=== PATIENT | female | born 1960 | race Caucasian/White ===

== ENCOUNTER 2016-09-15 19:22 | Emergency (ER) | payer BC, OTHER ==
[~2016-09-15] VITALS: Ht 167.6 cm; Wt 144.7 kg
[~2016-09-15 19:22] MED LIST: ALBU0.08 NEB; ALBUAER INH; FURO40TA3 PO; LANS15CA15 PO; LSN20 PO; URSO300C8 PO
[2016-09-15 19:31] VITALS: BP 183/82; PULSE 95; TEMP 36.7; O2SAT 97; Ht 167.6 cm; Wt 144.7 kg
[2016-09-15] MEDS ORDERED: OXYCODONE/ACETAMINOPHEN 5-325 TAB PO ONE (19:45)
--- NOTE | 2016-09-15 20:07 | DIAGNOSTIC IMAGING REPORT ---
RIGHT FOOT MIN 3 VIEWS ROUTINE CLINICAL HISTORY: Right foot pain status post trauma COMPARISON: None. DISCUSSION: No acute fractures or dislocations are visualized. There is a tiny Achilles insertional spur. There is a small ossicle adjacent the dorsal aspect of the navicular which is felt to be old. IMPRESSION: No acute fractures or dislocations. Electronically signed by: Jt Mendes M.D. 09/15/2016 8:05 PM Dictated Date/Time: 09/15/2016 8:04 PM
[2016-09-15] MEDS ORDERED: OXYC-57 PO (20:35)
--- NOTE | 2016-09-15 20:36 | EMERGENCY ROOM VISIT NOTE ---
ED Visit Note First contact with patient: 19:33 Chief Complaint: RIGHT Foot Pain History of Present Illness: Patient is a 56-year-old female who presents to the emergency Department by private vehicle for evaluation of pain to her RIGHT foot. She reports a prior history of sesamoid bone fracture with subsequent surgical intervention performed by Dr. Rendon. She reports that she has had no real symptoms since the procedure was performed. Today, she reports walking on an inclined hill while at an Easter egg [place] with her daughter. She reports that she had no pain until after ambulate awkwardly on the hill. She shortly develop stabbing pain to the top and bottom of the RIGHT foot overlying the great toe. She denies any numbness or tingling into the distal extremity. She reports no new trauma to the area. The patient tried one of her 's Percocet with moderate relief of symptoms. She reports increasing pain with ambulation and range of motion of the foot. The patient rates her current discomfort as a 6/10. She denies any associated fevers, chills, ankle pain, calf pain, or knee pain. Medications: Reviewed and discussed with the patient. Allergies: Aspirin, chlorhexidine, garlic, hydrocodone, morphine, penicillins PMH: As above. SHx: Patient is a 56-year-old female who lives locally. ROS: All pertinent positive and negative review of systems are appropriately documented in the History of Present Illness. Physical Exam: VITAL SIGNS - Vital signs and nursing notes were reviewed. GENERAL - 56-year-old female appearing her stated age and in noticeable discomfort throughout the exam. MUSCULOSKELETAL - RIGHT foot without erythema, edema, and ecchymosis. Well- healed surgical incision site noted to the distal portion of the LEFT foot between the first and second MTP joints. Moderate tenderness to palpation appreciated over the incision site. No tenderness to palpation in the plantar arch. No tenderness extending into the ankle or toes. Pt with full AROM at affected joint. NEUROLOGIC/VASCULAR - Neurovascularly intact distally with +3/5 dorsalis pedis pulses palpated bilaterally. Normal sensation to light and sharp touch appreciated distally. IMAGING: RIGHT FOOT MIN 3 VIEWS ROUTINE CLINICAL HISTORY: Right foot pain status post trauma COMPARISON: None. DISCUSSION: No acute fractures or dislocations are visualized. There is a tiny Achilles insertional spur. There is a small ossicle adjacent the dorsal aspect of the navicular which is felt to be old. IMPRESSION: No acute fractures or dislocations. ED Course: Patient was seen and evaluated by myself. Patient was provided one Percocet for their complaint of pain. X-rays were obtained of the affected foot. Imaging results as above. Images were discussed and reviewed with the patient who acknowledges understanding. Patient was provided a Postop shoe for their comfort. She has crutches at home. Patient was provided for pain control at home. Patient educated on worrisome symptoms for return visit to the emergency department. She will follow-up with her orthopedist with whom she is established. In the evaluation and treatment of this patient, the following differential diagnoses were considered: Lisfranc Fracture, Talus Fracture, Tarsal Fracture, Foot Sprain. Impression: RIGHT Foot Sprain/Strain Discharge Instructions: You have been treated in the Emergency Department for your RIGHT Foot Sprain/ Strain. You have been prescribed Percocet to be used for pain control. This is a narcotic medication. You cannot drive or consume alcohol while on this medicine. This medicine should only be used for pain that cannot be controlled with plis-sqs-rykszwa pain medicines. For pain control, you can use the following wbfr-qpc-tfpsadr medicines (if >12 yo): - Regular strength (325mg/tab) Tylenol (acetaminophen) 2 tabs every 4-6 hours as needed. Do not exceed 12 tablets in a 24 hour period. Avoid taking more than 4 grams (4000 mg) of Tylenol per day. This includes any other sources of acetaminophen you may take on a regular basis. - Regular strength (200 mg/tab) Advil (ibuprofen) 1-2 tabs every 4-6 hours as needed. Do not exceed a dose of 3200 mg per day. If this is a recent injury (<24 hrs), ice can be applied to the area of pain for the first 3 days to help decrease pain and inflammation. Use the post-op shoe for comfort and crutches. Follow-up with Dr. Rendon this week. Return to the Emergency Department if your current symptoms worsen despite treatment course outlined above, or if you develop any of the following symptoms : intractable pain despite aforementioned treatment course or new onset of numbness or tingling of the foot. Problem List Medical Problems: (1) Chronic low back pain Status: Chronic (2) History of - Barone's palsy Status: Resolved (3) Hypoglycemia Status: Chronic (4) Migraine Status: Chronic (5) PERSONAL HX OF TIA,& CEREBRAL INFARCTION W/OUT RES DEFICITS Status: Resolved Current/Historical Medications Scheduled Albuterol Soln (Proventil 0.083% 2.5MG/3ML), 2.5 MG NEB Q4 Lansoprazole (Prevacid), 15 MG PO DAILY Lisinopril (Lisinopril), 20 MG PO DAILY Ursodiol (Ursodiol), 300 MG PO BID Scheduled PRN Albuterol (Proventil Hfa), 2 PUFFS INH Q4 PRN for SOB/Wheezing Furosemide (Lasix), 40 MG PO DAILY PRN for EDEMA Oxycodone/Acetaminophen 5MG/325MG (Percocet 5MG/325MG), 1-2 TABS PO Q6 PRN for Pain Allergies Coded Allergies: Chlorhexidine (Verified Allergy, Intermediate, severe itching, 12/02/14) Garlic (Verified Allergy, Intermediate, SKIN BLISTERING/PEELING, 12/02/14) Hydrocodone (Verified Allergy, Intermediate, HIVES, 12/02/14) Aspirin (Verified Allergy, Unknown, `, 12/02/14) Penicillins (Verified Allergy, Unknown, `, 12/02/14) Morphine (Verified Adverse Reaction, Mild, N/V, 12/02/14) Vital Signs Date Time Temp Pulse Resp B/P Pulse Ox O2 Delivery O2 Flow Rate FiO2 09/15/16 19:31 36.7 95 18 183/82 97 Room Air Medications Administered Medications (Trade) Dose Ordered Sig/Rishabh Route Start Time Stop Time Status Last Admin Dose Admin Oxycodone/ Acetaminophen (Percocet 5-325mg Tab) 1 tab NOW ONCE PO 09/15/16 19:45 09/15/16 19:46 DC 09/15/16 19:55 1 TAB Oxycodone/ Acetaminophen (Percocet 5/ 325MG Home Pack) 1 homepack UD ONCE PO 09/15/16 20:45 09/15/16 20:46 DC 09/15/16 20:37 1 HOMEPACK Departure Information Impression Primary Impression: Right foot strain Dispostion Home / Self-Care Condition GOOD Prescriptions Oxycodone/Acetaminophen 5MG/325MG (PERCOCET 5MG/325MG) Tab 1-2 TABS PO Q6 Y for Pain, #16 TAB For Initial Treatment Prov: Silvio Cooper PA-C 09/15/16 Referrals Abhishek Hdz M.D. (PCP) Luciano Rendon D.O. Patient Instructions My [facility] Additional Instructions You have been treated in the Emergency Department for your RIGHT Foot Sprain/ Strain. You have been prescribed Percocet to be used for pain control. This is a narcotic medication. You cannot drive or consume alcohol while on this medicine. This medicine should only be used for pain that cannot be controlled with dibn-qqa-ommvaai pain medicines. For pain control, you can use the following dxxl-zva-zcepist medicines (if >12 yo): - Regular strength (325mg/tab) Tylenol (acetaminophen) 2 tabs every 4-6 hours as needed. Do not exceed 12 tablets in a 24 hour period. Avoid taking more than 4 grams (4000 mg) of Tylenol per day. This includes any other sources of acetaminophen you may take on a regular basis. - Regular strength (200 mg/tab) Advil (ibuprofen) 1-2 tabs every 4-6 hours as needed. Do not exceed a dose of 3200 mg per day. If this is a recent injury (<24 hrs), ice can be applied to the area of pain for the first 3 days to help decrease pain and inflammation. Use the post-op shoe for comfort and crutches. Follow-up with Dr. Rendon this week. Return to the Emergency Department if your current symptoms worsen despite treatment course outlined above, or if you develop any of the following symptoms : intractable pain despite aforementioned treatment course or new onset of numbness or tingling of the foot. Problem Qualifiers Primary Impression: Right foot strain Encounter type: initial encounter Qualified Codes: S96.911A - Strain of unspecified muscle and tendon at ankle and foot level, right foot, initial encounter
[2016-09-15] MEDS ORDERED: PERCOCET HOME PACK PO ONE (20:45)
== END 2016-09-15 20:49 | disposition home or self-care (01) ==
LOC: C.EDB 19:23 → C.EDD 20:49
DX: S96.911A Strain of unspecified muscle and tendon at ankle and foot level, right foot, initial encounter (principal); X58.XXXA Exposure to other specified factors, initial encounter; Y93.01 Activity, walking, marching and hiking; G89.29 Other chronic pain; Z86.73 Personal history of transient ischemic attack (TIA), and cerebral infarction without residual deficits

== ENCOUNTER 2017-09-02 19:11 | Emergency (ER) | payer OTHER ==
[~2017-09-02] VITALS: Ht 167.6 cm; Wt 142.9 kg
[2017-09-02 19:14] VITALS: TEMP 36.8; Ht 167.6 cm; Wt 142.9 kg
[2017-09-02 19:44] VITALS: BP 170/82; PULSE 91; O2SAT 95
--- NOTE | 2017-09-02 22:57 | EMERGENCY ROOM VISIT NOTE ---
ED Visit Note First contact with patient: 19:29 CHIEF COMPLAINT: knee pain HISTORY OF PRESENT ILLNESS: This 57-year-old female patient presents to the emergency department after sustaining an injury to the right knee several days ago. The patient states that she was crawling on the floor with her special needs daughter, when she felt increasing pain of her right knee. The patient has a history of chronic pain in this knee, and has required surgery in the past. The patient did follow with her family doctor regarding this and was started on steroids. She is able to ambulate, however worsens her pain. The patient does follow with [facility], but has not contacted them regarding this. REVIEW OF SYSTEMS: A 6 system review of systems was completed with positives and pertinent negatives listed in the HPI. ALLERGIES: See EMR MEDICATIONS: See EMR PMH: Chronic right knee pain SOCIAL HISTORY: Lives locally with family PHYSICAL EXAM: Vital Signs: Reviewed Nurse's notes, vital signs stable. GENERAL : White female, no acute distress, but appears in pain, well-developed, well- nourished. MENTAL STATUS: Alert, oriented to person place and time, and cooperative. MUSCULOSKELETAL: The right knee is moderately swollen. There is no ecchymosis. There is mild joint effusion present. The patient is tender anteriorly. There is no joint line tenderness. The patella does not subluxate. Range of motion is not limited. Strength of the quads and hamstrings is 5/5. Hedy's is Negative. Dana's and Anterior Drawer tests are negative. There is no laxity with varus and valgus stressing. The foot and toes are warm and well-perfused. Dorsalis pedis pulse 2+. Sensation to pain and light touch is intact. Capillary refill less than 2 seconds. EMERGENCY DEPARTMENT COURSE: Physical exam and history were performed. Nursing notes and EMR were reviewed. Patient appears to have right knee pain that is acutely exacerbated. The patient has had symptoms like this in the past. I discussed options of care with the patient, and offered her x-rays, pain medication, crutches, and a splint. The patient indicated that she did not desire any of these interventions. Her primary reason for presentation is to have an aspiration performed of the knee. I explained to the patient that this was not emergently indicated. The patient was dissatisfied with this, however I did explain that her orthopedic group, [facility], does maintain walk-in clinic hours until 8 PM. It is certainly possible they may be willing to perform this procedure for her, as we are unable to perform this in the emergency department. The patient voiced that this would be reasonable and requested discharge so that she may go to their clinic. Paperwork was completed and patient was discharged to follow with orthopedics. Problem List Medical Problems: (1) Chronic low back pain Status: Chronic (2) History of - Barone's palsy Status: Resolved (3) Hypoglycemia Status: Chronic (4) Migraine Status: Chronic (5) PERSONAL HX OF TIA,& CEREBRAL INFARCTION W/OUT RES DEFICITS Status: Resolved Current/Historical Medications Scheduled Albuterol Soln (Proventil 0.083% 2.5MG/3ML), 2.5 MG NEB Q4 Lansoprazole (Prevacid), 15 MG PO DAILY Lisinopril (Lisinopril), 20 MG PO DAILY Ursodiol (Ursodiol), 300 MG PO BID Scheduled PRN Albuterol (Proventil Hfa), 2 PUFFS INH Q4 PRN for SOB/Wheezing Furosemide (Lasix), 40 MG PO DAILY PRN for EDEMA Allergies Coded Allergies: Chlorhexidine (Verified Allergy, Intermediate, severe itching, 12/02/14) Garlic (Verified Allergy, Intermediate, SKIN BLISTERING/PEELING, 12/02/14) Hydrocodone (Verified Allergy, Intermediate, HIVES, 12/02/14) Aspirin (Verified Allergy, Unknown, `, 12/02/14) Penicillins (Verified Allergy, Unknown, `, 12/02/14) Morphine (Verified Adverse Reaction, Mild, N/V, 12/02/14) Vital Signs Date Time Temp Pulse Resp B/P (MAP) Pulse Ox O2 Delivery O2 Flow Rate FiO2 09/02/17 19:44 91 18 170/82 95 09/02/17 19:14 36.8 99 18 185/79 96 Room Air Departure Information Impression Primary Impression: Knee pain Dispostion Home / Self-Care Condition GOOD Referrals No Doctor, Assigned Luciano Rendon D.O. Forms HOME CARE DOCUMENTATION FORM, IMPORTANT VISIT INFORMATION Patient Instructions My [facility] Additional Instructions You were seen and evaluated today on an emergency basis only. This is not a substitute for, or an effort to provide, complete comprehensive medical care. It is not possible to recognize and treat all injuries or illnesses in a single emergency department visit. For this reason it is recommended that you followup with Orthopedics, Dr. Rendon's office, for ongoing care and evaluation. You are welcome to return to the emergency department anytime with new, worsening, or concerning symptoms.
== END 2017-09-02 19:46 | disposition home or self-care (01) ==
LOC: C.EDB 19:12 → C.EDD 19:46
DX: M25.561 Pain in right knee (principal); G89.29 Other chronic pain; Z86.73 Personal history of transient ischemic attack (TIA), and cerebral infarction without residual deficits; Z79.899 Other long term (current) drug therapy; Z88.6 Allergy status to analgesic agent; Z88.0 Allergy status to penicillin; Z88.5 Allergy status to narcotic agent; Z91.018 Allergy to other foods

== ENCOUNTER 2025-03-13 11:45 | Inpatient (IN) ==
--- NOTE | 2025-03-13 12:09 | Emergency Department Note ---
Impression & Plan Heart palpitations, Chest pain, Hypertensive urgency ED Provider Note Provider: Derrell Epps MD CHIEF COMPLAINT: Palpitations, chest and neck pressure HISTORY OF PRESENT ILLNESS: Patient is a 64-year-old female history of diabetes, microcytic anemia, and hypertension presenting here today via ambulance from her home. States she was at home crocheting and had development of palpitations in the chest maybe a bit of lightheadedness and some later pressure in the chest to the neck. This has improved. No syncope. No falls. No abdominal pain or nausea. No history of similar but strong family history of A-fib. She felt quite shaky and states she did not feel comfortable driving so she called the ambulance and brought here for further care. Notes that her blood pressure is high right now and at times has been high and low. Blood sugars in the 100s to 200s by her report and has a continuous glucose monitor. Denies recent cough or cold symptoms. Denies leg swelling at this time. No recent travel outside the immediate area reported. No sick contacts reported. Slight headache and she is a history of headaches in the past. PAST MEDICAL HISTORY: As noted above MEDICATIONS: Reviewed home medications SOCIAL HISTORY: , former smoker PHYSICAL EXAM: GENERAL: alert and oriented in no acute distress on stretcher Head: normocephalic and atraumatic EYES: No injection, discharge or icterus. NECK: Trachea midline. Good range of motion ENT: Mucous membranes pink and moist. LUNGS: Airway patent. No retractions. Breath sounds clear with good air entry bilaterally. HEART: Regular tachycardic rate and rhythm. No chest wall tenderness ABDOMEN: Soft and non-tender, without guarding or rebound. SKIN: Acyanotic, warm, dry, without rashes EXTREMITIES: Without swelling, tenderness or deformity NEUROLOGICAL: No focal deficits. No aphasia. No facial droop or slurred speech. Normal strength and tone in the extremities. Sensation to gross touch normal. Ambulatory. EK bpm sinus tachycardia with PVC. No ST segment elevation or depression with QTc 478. Diffuse T wave inversions. CONTINUOUS CARDIAC MONITORING: was ordered and showed a heart rate of 70s to 120s bpm in sinus tachycardia/normal sinus rhythm Patient's laboratory studies and imaging reviewed. Differential includes Premature contractions, electrolyte abnormality, cardiac dysrhythmia, thyroid dysfunction, pulmonary embolism, infection, gastrointestinal, as well as other pathologies. IMPRESSION/MEDICAL DECISION MAKING: Patient with some palpitations and maybe some chest and neck tightness earlier. He is hypertensive here upon arrival. Has had some improvement of her symptoms by report. EKG here without STEMI or significant arrhythmia other than tachycardia. Blood work here without leukocytosis and no real infectious symptoms reported. Not anemic here. No significant lecture light abnormality or evidence of renal dysfunction. Is a diabetic and glucose is elevated 203 but not HHS/DKA. No evidence of acute hepatitis or pancreatitis. Troponin does return normal at 4 here on initial draw. Negative urinalysis (although she reports urinary frequency) and normal TSH. Patient does have some persistent tachycardia and hypertension. Given this discussed with her completing a CTA of the chest to exclude PE but I doubt this represents dissection. Certainly has cardiac risk factors. Given a bit of IV fluid here. Patient ambulatory here but still persistently tachycardic and little tightness of the neck with this. Persistently hypertensive. CT angiogram of the chest without evidence of PE with some atelectasis and mild coronary calcifications. Patient's heart rate is right around to 100 currently. Not hypoxic. Patient still with hypertension. Still with palpitation sensation and again not in significant arrhythmia. Discussed with her options of staying for further evaluation and cardiac evaluation in particular. Discussed possible delta troponin along these lines as well. Shared decision making given that she still had tachycardia and hypertensive and still has some chest discomfort we will give labetalol for better blood rate and heart rate control as she still feels significant palpitations and will bring in for further cardiac evaluation and blood pressure control. DIAGNOSIS: Palpitations, hypertension, atypical chest pain, tachycardia DISPOSITION: Hospitalist will evaluate Patient was agreeable with this plan. Past Med/Surg History Problem List (Updated 03/13/25 @ 14:34 by Derrell Epps M.D.) Hypertensive urgency (Acute) Chest pain (Acute) Heart palpitations (Acute) Anemia (Chronic) Microcytic anemia (Chronic) Diabetes (Chronic) Asthma (Chronic) Migraine headache (Chronic) GERD (gastroesophageal reflux disease) (Chronic) Diaphragmatic hernia (Chronic) Von Willebrand disease (Chronic) HTN (hypertension) (Chronic) [place] treated with BiPAP (Chronic) Autoimmune hepatitis (Chronic 03/09/11) Medical History (Updated 03/13/25 @ 14:34 by Derrell Epps M.D.) Asthma Autoimmune hepatitis Family History Other Diabetes Heart disease Hypertension Social History Smoking Status: Former smoker Do You Dip or Chew Tobacco: No; Hx Alcohol Use: No Hx Substance Use: Yes Preferred Language: Kinyarwanda Communication Ability: Effective Cadd Drafter Required: No Beliefs That Will Affect Care: None Current Living Situation: Spouse and Family Feels Safe at Home: Yes Assistive Devices: BiPap and Glasses Allergies Allergies Allergy/AdvReac Type Severity Reaction Status Date / Time chlorhexidine Allergy Intermediate severe Verified 03/01/19 17:04 itching garlic Allergy Intermediate SKIN Verified 03/13/25 14:44 BLISTERING/PEELING hydrocodone Allergy Intermediate HIVES Verified 03/01/19 17:04 aspirin Allergy Unknown ` Verified 03/01/19 17:04 hydromorphone [From Dilaudid] Allergy Unknown Unknown Verified 03/01/19 17:04 Penicillins Allergy Unknown ` Verified 03/01/19 17:04 mold Allergy Unknown Verified 03/01/19 17:04 morphine AdvReac Mild N/V Verified 03/01/19 17:04 ferumoxytol [From Feraheme] AdvReac Joint Pain Verified 03/13/25 14:45 Home Meds Home Medications Medication Instructions Recorded Confirmed albuterol sulfate 2.5 mg/3 mL 2.5 mg inhalation Q4H PRN SOB 03/13/25 03/13/25 (0.083 %) solution for nebulization albuterol sulfate 90 mcg/actuation 1 inh inhalation QID PRN SOB 03/13/25 03/13/25 aerosol inhaler amlodipine 2.5 mg tablet 2.5 mg PO DAILY 03/13/25 03/13/25 celecoxib 100 mg capsule 100 mg PO BID PRN Unknown 03/13/25 03/13/25 cholecalciferol (vitamin D3) 50 50 mcg PO DAILY 03/13/25 03/13/25 mcg (2,000 unit) tablet (Vitamin D3) furosemide 40 mg tablet 40 mg PO DAILY PRN RETENTION 03/13/25 03/13/25 gemfibrozil 600 mg tablet 600 mg PO BID 03/13/25 03/13/25 glimepiride 1 mg tablet 1 mg PO DAILY 03/13/25 03/13/25 lansoprazole 30 mg capsule,delayed 30 mg PO DAILY 03/13/25 03/13/25 release ursodiol 300 mg capsule 300 mg PO BID 03/13/25 03/13/25 Results & Data (ED) Vital Signs Vital Signs - 24 hr 03/13/25 11:49 03/13/25 11:58 03/13/25 11:59 Pulse Rate 120 H 111 H Pulse Rate from SpO2 Sensor Respiratory Rate 22 19 Blood Pressure 183/142 H 183/137 H 185/137 H Blood Pressure Mean 157 152 155 Pulse Oximetry 95 94 Oxygen Delivery Method Room Air Room Air Sepsis Recent Fever Within 48 Hours No Sepsis New/Unexplained Change in Mental Status No Sepsis Action Taken by Nursing Physician Notified 03/13/25 12:01 03/13/25 12:12 03/13/25 13:28 Pulse Rate 95 H 85 120 H Pulse Rate from SpO2 Sensor Respiratory Rate 20 20 Blood Pressure 172/148 H Blood Pressure Mean 151 Pulse Oximetry 95 95 Oxygen Delivery Method Room Air Room Air Sepsis Recent Fever Within 48 Hours Sepsis New/Unexplained Change in Mental Status Sepsis Action Taken by Nursing 03/13/25 13:39 03/13/25 14:00 03/13/25 14:38 Pulse Rate 98 H 118 H 112 H Pulse Rate from SpO2 Sensor Respiratory Rate 20 22 Blood Pressure 170/93 H 187/115 H 146/108 H Blood Pressure Mean 110 146 Pulse Oximetry 95 Oxygen Delivery Method Room Air Sepsis Recent Fever Within 48 Hours Sepsis New/Unexplained Change in Mental Status Sepsis Action Taken by Nursing 03/13/25 14:39 03/13/25 14:49 03/13/25 14:49 Pulse Rate 94 H Pulse Rate from SpO2 Sensor Respiratory Rate 18 Blood Pressure 146/108 H 158/86 H 158/86 H Blood Pressure Mean 111 115 115 Pulse Oximetry Oxygen Delivery Method Sepsis Recent Fever Within 48 Hours Sepsis New/Unexplained Change in Mental Status Sepsis Action Taken by Nursing 03/13/25 14:51 03/13/25 14:53 Pulse Rate 89 93 H Pulse Rate from SpO2 Sensor 93 H Respiratory Rate 19 Blood Pressure 158/86 H Blood Pressure Mean Pulse Oximetry 94 Oxygen Delivery Method Sepsis Recent Fever Within 48 Hours Sepsis New/Unexplained Change in Mental Status Sepsis Action Taken by Nursing Laboratory Data 03/13/25 11:52 03/13/25 11:52 Lab Results 03/13/25 Range/Units 11:52 WBC 8.88 (4.8-10.8) K/ul RBC 4.97 (4.20-5.40) M/uL Hgb 14.7 (12.0-16.0) g/dl Hct 44.1 (37.0-47.0) % MCV 88.7 (80.0-100.0) fL MCH 29.6 (25.0-34.0) pg MCHC 33.3 (32.0-36.0) g/dL RDW Std Deviation 44.1 (36.4-46.3) fL RDW Coeff of Michelle 13.7 (11.5-14.5) % Plt Count 250 (130-400) K/uL MPV 9.9 (9.4-12.4) fL Immature Gran % (Auto) 0.8 % Neut % (Auto) 69.1 % Lymph % (Auto) 18.7 % [place] % (Auto) 8.1 % Eos % (Auto) 2.6 % Baso % (Auto) 0.7 % Neut # (Auto) 6.14 (1.40-6.50) K/uL Lymph # (Auto) 1.66 (1.20-3.40) K/uL [place] # (Auto) 0.72 H (0.11-0.59) K/uL Eos # (Auto) 0.23 (0.00-0.50) K/uL Baso # (Auto) 0.06 (0.00-0.20) K/uL Immature Gran # (Auto) 0.07 (0.01-0.20) K/uL PT 10.5 (9.0-12.0) Seconds INR 1.0 (0.9-1.1) APTT 35 H (21-31) Seconds PTT Ratio 1.3 Sodium 138 (136-145) mmol/L Potassium 4.2 (3.5-5.1) mmol/L Chloride 100 (98-107) mmol/L Carbon Dioxide 29 (21-32) mmol/L Anion Gap 9 (3-11) BUN 18 (6-23) mg/dl Creatinine 0.72 (0.6-1.2) mg/dl Est Cr Clr Drug Dosing 113.8 ml/min eGFR 92.73 BUN/Creatinine Ratio 25.0 H (10-20) Glucose 203 H (70-99(Fasting)) mg/dl Calcium 9.7 (8.6-10.3) mg/dl Total Bilirubin 0.3 (0.2-1.0) mg/dl AST 12 L (13-39) U/L ALT 17 (7-52) U/L Alkaline Phosphatase 94 (34-104) U/L Troponin I High Sens 4.0 (0-14) pg/ml Total Protein 8.1 (6.0-8.3) gm/dl Albumin 3.9 (3.4-5.0) gm/dl Globulin 4.2 H (2.5-4.0) gm/dl Albumin/Globulin Ratio 0.9 (0.9-2) Lipase 26 (11-82) U/L TSH 1.164 (0.300-4.500) uIu/ml Urine Color Yellow Urine Appearance Clear (Clear) Urine pH 6.5 (4.5-7.5) Ur Specific [place] 1.013 (1.000-1.030) Urine Protein Negative (Negative) Urine Glucose (UA) Negative (Negative) Urine Ketones Negative (Negative) Urine Blood Negative (Negative) Urine Nitrite Negative (Negative) Urine Bilirubin Negative (Negative) Urine Urobilinogen Negative (Negative) Ur Leukocyte Esterase Negative (Negative) Urine Comment Administered Medications Discontinued Medications Sodium Chloride (Nss) 500 mls @ 999 mls/hr IV .Q31M ONE Stop: 03/13/25 13:32 Last Admin: 03/13/25 13:11 Dose: 999 mls/hr Documented By: AKASH Ioversol (Optiray 320 125ml) 65 ml IV ONCE ONE Stop: 03/13/25 13:35 Last Admin: 03/13/25 13:36 Dose: 65 ml Documented By: GAEL Labetalol HCl (Labetalol Hcl Iv 5 Mg/Ml 20ml) 10 mg IV NOW STA Stop: 03/13/25 14:33 Last Admin: 03/13/25 14:38 Dose: 10 mg Documented By: AKASH Imaging Data Radiologist's Impression: Chest X-Ray 03/13/25 12:00 Clinical History: Chest pain Technique: A frontal view of the chest was obtained Findings: There are no confluent pulmonary infiltrates. The heart size is within normal limits. No pleural effusion or pneumothorax is seen. There is no definite pulmonary nodule. No fracture is noted. No foreign body is seen Impression: No active disease Electronically signed by Kota Ridley 03-13-2025 12:32 PM Chest CTA 03/13/25 12:55 Exam: CT angiogram chest with the pulmonary embolus protocol. Reason for exam: Chest pain with tachycardia. Previous studies: Chest radiograph 03/13/2025. FINDINGS: There is good opacification of the pulmonary artery. At this time no persistent filling defect to indicate pulmonary embolus is identified on either side. Aorta shows no visible aneurysm or dissection at this time. Mild coronary artery calcifications are present. Lungs again show minimal scattered linear areas of atelectasis. Otherwise no active pulmonary nodule, infiltrate or mass lesion is seen at this time. No pleural effusion or pneumothorax is noted. IMPRESSION: 1. Negative for pulmonary embolus. 2. A few scattered areas of linear atelectasis. Otherwise clear lungs. 3. Mild coronary artery calcification. 4. Otherwise negative for active cardiopulmonary disease. Electronically signed by Robby Murdock 03-13-2025 2:17 PM Discharge Plan Visit Data Chief Complaint: Cardiac Assessment ED Provider: Derrell Epps Discharge Problem: Heart palpitations, Chest pain, Hypertensive urgency Patient Disposition: Admitted As Inpatient Condition: Fair Discharge Instructions Interventions: ED Discharge Assessment Last Done: 03/13/25 16:20
[2025-03-13 12:17] LABS: Appearance Urine Clear (Clear); Glucose Urine UA Negative (Negative); Hematocrit (blood only) 44.1 % (37.0-47.0); Hemoglobin 14.7 g/dl (12.0-16.0); Immature Granulocytes # (auto) 0.07 K/uL (0.01-0.20); Immature Granulocytes % (auto) 0.8 %; Mean Corpuscular Hemoglobin 29.6 pg (25.0-34.0); Mean Corpuscular Volume 88.7 fL (80.0-100.0); Platelet Count 250 K/uL (130-400); RDW Standard Deviation 44.1 fL (36.4-46.3); Red Blood Count 4.97 M/uL (4.20-5.40); White Blood Count 8.88 K/ul (4.8-10.8)
[2025-03-13 12:25] LABS: Alanine Aminotransferase 17.0 U/L (7-52); Albumin Globulin Ratio 0.9 (0.9-2); Albumin Level 3.9 gm/dl (3.4-5.0); Alkaline Phosphatase 94.0 U/L (34-104); Anion Gap 9.0 (3-11); Bilirubin,Total 0.3 mg/dl (0.2-1.0); Blood Urea Nitrogen 18.0 mg/dl (6-23); Calcium 9.7 mg/dl (8.6-10.3); Carbon Dioxide 29.0 mmol/L (21-32); Chloride 100.0 mmol/L (98-107); Creatinine Clr Calc Pharmacy 113.8 ml/min; Globulin 4.2 gm/dl (2.5-4.0); Glucose 203.0 mg/dl (70-99(Fasting)); Lipase 26.0 U/L (11-82); Potassium 4.2 mmol/L (3.5-5.1); Sodium 138.0 mmol/L (136-145); Total Protein 8.1 gm/dl (6.0-8.3)
--- NOTE | 2025-03-13 12:34 | XRay Report ---
Clinical History: Chest pain Technique: A frontal view of the chest was obtained Findings: There are no confluent pulmonary infiltrates. The heart size is within normal limits. No pleural effusion or pneumothorax is seen. There is no definite pulmonary nodule. No fracture is noted. No foreign body is seen Impression: No active disease Electronically signed by Kota Ridley 03-13-2025 12:32 PM
[2025-03-13 12:41] LABS: Thyroid Stimulating Hormone 1.164 uIu/ml (0.300-4.500)
[2025-03-13 12:52] LABS: INR 1.0 (0.9-1.1); Partial Thromboplastin Time 35 Seconds (21-31); Prothrombin Time 10.5 Seconds (9.0-12.0)
[2025-03-13] MEDS: SODIUM CHLORIDE 0.9% 500 ML IV ONE (13:11)
[2025-03-13] MEDS: OPTIRAY 320 125ml IV ONE (13:36)
--- NOTE | 2025-03-13 14:18 | CT Scan Report ---
Exam: CT angiogram chest with the pulmonary embolus protocol. Reason for exam: Chest pain with tachycardia. Previous studies: Chest radiograph 03/13/2025. FINDINGS: There is good opacification of the pulmonary artery. At this time no persistent filling defect to indicate pulmonary embolus is identified on either side. Aorta shows no visible aneurysm or dissection at this time. Mild coronary artery calcifications are present. Lungs again show minimal scattered linear areas of atelectasis. Otherwise no active pulmonary nodule, infiltrate or mass lesion is seen at this time. No pleural effusion or pneumothorax is noted. IMPRESSION: 1. Negative for pulmonary embolus. 2. A few scattered areas of linear atelectasis. Otherwise clear lungs. 3. Mild coronary artery calcification. 4. Otherwise negative for active cardiopulmonary disease. Electronically signed by Robby Murdock 03-13-2025 2:17 PM
[2025-03-13] MEDS: LABETALOL HCL IV 5 MG/ML 20ML IV STA (14:38)
[2025-03-13] MEDS ORDERED: ALBUTEROL 0.083% NEBU SOLN 3 ML VIAL INH PRN (14:58)
--- NOTE | 2025-03-13 15:01 | History & Physical Report ---
Date of Service March 13, 2025 Assessment & Plan (1) Hypertensive urgency: (2) Autoimmune hepatitis: (3) Asthma: (4) Heart palpitations: (5) Chest pain: (6) Diabetes: (7) Migraine headache: (8) GERD (gastroesophageal reflux disease): (9) Diaphragmatic hernia: (10) Von Willebrand disease: (11) HTN (hypertension): (12) [place] treated with BiPAP: Plan The patient is a 64-year-old female who presented to the ED on 03/13/25 with complaints of heart palpitations and chest pressure Palpitations: EKG with PVCs, suspect underlying runs of PVCs causing tachycardia Check echo, telemetry monitoring, carvedilol started 6.25 mg BID to help with HTN and palpitations Continue monitoring for possible underlying atrial fibrillation; trop neg Hypertensive urgency: Managed on amlodipine/losartan at home, hold amlodipine for now, coreg started - continue losartan Hx [place] on BiPAP: Continue BiPAP at bedtime Hx asthma: Not in active exacerbation, inhalers a needed Hx autoimmune hepatitis: Continue ursodiol A total of 55 minutes was spent on chart review/reviewing diagnostic data facilitating plan of care/discussion with consultants Full code DVT prophylaxis: Lovenox History of Present Illness Chief Complaint: palpitations Primary Care Provider: SRINI Cid The patient is a 64-year-old female with a past medical history of diabetes, asthma, migraines, GERD, von Willebrand disease, HTN, [place] treated with BiPAP, autoimmune hepatitis who presents to the ED on 03/13/25 with complaints of palpitations that started this a.m. The patient reports having breakfast as normal and crocheting. She reports feeling like her neck was throbbing due to her heart pounding. States she also reported some mild chest pressure. Denies any shortness of breath associated with this. Denies any recent illness. Denies any caffeine intake. Denies significant anxiety. Denies any nausea/vomiting/diarrhea recently. Denies any prior episodes like this. Reported feeling shaky so she called 911. She also reports a family history of her mother and her aunt having atrial fibrillation and was concerned about this. She reports when EMS arrived, they believed that she was in atrial fibrillation. On arrival to the ED, SBP's were in the 180s, 170s. Patient reports that her blood pressure is usually pretty well-controlled. Her labs are fairly unremarkable, glucose was elevated at 203, TSH within normal limits, urinalysis negative EKG showed sinus rhythm with PVCs; HR in the 90s and low 100s Chest x-ray negative Patient chest CTA was negative for PE, showed a few areas of linear atelectasis and mild coronary artery calcification The patient will be admitted for further management and workup for palpitations Allergies Allergy/AdvReac Type Severity Reaction Status Date / Time chlorhexidine Allergy Intermediate severe Verified 03/01/19 17:04 itching garlic Allergy Intermediate SKIN Verified 03/13/25 14:44 BLISTERING/PEELING hydrocodone Allergy Intermediate HIVES Verified 03/01/19 17:04 aspirin Allergy Unknown ` Verified 03/01/19 17:04 hydromorphone [From Dilaudid] Allergy Unknown Unknown Verified 03/01/19 17:04 Penicillins Allergy Unknown ` Verified 03/01/19 17:04 mold Allergy Unknown Verified 03/01/19 17:04 morphine AdvReac Mild N/V Verified 03/01/19 17:04 ferumoxytol [From Feraheme] AdvReac Joint Pain Verified 03/13/25 14:45 Home Medications Medication Instructions Recorded Confirmed Type albuterol sulfate 2.5 mg/3 mL 2.5 mg inhalation Q4H PRN SOB 03/13/25 03/13/25 History (0.083 %) solution for nebulization albuterol sulfate 90 mcg/actuation 1 inh inhalation QID PRN SOB 03/13/25 03/13/25 History aerosol inhaler amlodipine 2.5 mg tablet 2.5 mg PO DAILY 03/13/25 03/13/25 History celecoxib 100 mg capsule 100 mg PO BID PRN Unknown 03/13/25 03/13/25 History cholecalciferol (vitamin D3) 50 50 mcg PO DAILY 03/13/25 03/13/25 History mcg (2,000 unit) tablet (Vitamin D3) furosemide 40 mg tablet 40 mg PO DAILY PRN RETENTION 03/13/25 03/13/25 History gemfibrozil 600 mg tablet 600 mg PO BID 03/13/25 03/13/25 History glimepiride 1 mg tablet 1 mg PO DAILY 03/13/25 03/13/25 History lansoprazole 30 mg capsule,delayed 30 mg PO DAILY 03/13/25 03/13/25 History release ursodiol 300 mg capsule 300 mg PO BID 03/13/25 03/13/25 History Past Med/Surg History Problem List (Updated 03/13/25 @ 14:34 by Derrell Epps M.D.) Hypertensive urgency (Acute) Chest pain (Acute) Heart palpitations (Acute) Anemia (Chronic) Microcytic anemia (Chronic) Diabetes (Chronic) Asthma (Chronic) Migraine headache (Chronic) GERD (gastroesophageal reflux disease) (Chronic) Diaphragmatic hernia (Chronic) Von Willebrand disease (Chronic) HTN (hypertension) (Chronic) [place] treated with BiPAP (Chronic) Autoimmune hepatitis (Chronic 03/09/11) Medical History (Updated 03/13/25 @ 14:34 by Derrell Epps M.D.) Asthma Autoimmune hepatitis Family History Other Diabetes Heart disease Hypertension Social History Smoking Status: Former smoker Tobacco Type: Cigarettes Second Hand Exposure: No; Do You Dip or Chew Tobacco: No; Tobacco Cessation Education Requested by Patient: No Hx Alcohol Use: Yes Hx Substance Use: No Preferred Language: [place] Communication Ability: Effective [place] Room Worker Required: No Beliefs That Will Affect Care: None Current Living Situation: Spouse and Family Other Information That Helps Us Care for You: No Feels Safe at Home: Yes Safety Concerns: Feels Safe At This Time Assistive Devices: BiPap and Glasses Review of Systems Review of Systems: All systems reviewed & are unremarkable except as noted in HPI & below Physical Exam Constitutional: WD/WN, vitals as above Eyes: PERRL, conjunctivae normal, anicteric sclerae ENMT: external ear and nose normal, oropharynx normal Neck: trachea midline, no thyromegaly Respiratory: normal respiratory effort, lungs clear to auscultation Cardiovascular: RRR, no murmur, no edema Rate/Rhythm: + tachycardic Gastrointestinal (Abdomen): normal bowel sounds, soft, nontender, no hepatosplenomegaly Musculoskeletal: no cyanosis or clubbing, extremities motor strength 5/5 Skin: no rashes, warm and dry Neurologic: PERRL, EOMI, accommodation nl, no face palsy, no dysarthria Psychiatric: A+Ox3, euthymic affect Lymphatic: no cervical or axillary lymphadenopathy Results & Data Results & Data Vital Signs (Past 12 Hours) Vital Signs Pulse Resp BP Pulse Ox O2 Del Method 03/13/25 14:53 93 H 158/86 H 03/13/25 14:51 89 19 94 03/13/25 14:49 158/86 H 03/13/25 14:49 94 H 18 158/86 H 03/13/25 14:39 146/108 H 03/13/25 14:38 112 H 146/108 H 03/13/25 14:00 118 H 22 187/115 H 03/13/25 13:39 98 H 20 170/93 H 95 Room Air 03/13/25 13:28 120 H 03/13/25 12:12 85 20 95 Room Air 03/13/25 12:01 95 H 20 172/148 H 95 Room Air 03/13/25 11:59 111 H 19 185/137 H 94 Room Air 03/13/25 11:58 120 H 22 183/137 H 95 Room Air 03/13/25 11:49 183/142 H Diagnostic Findings Laboratory Results WBC 8.88 K/ul (4.8-10.8) 03/13/25 11:52 RBC 4.97 M/uL (4.20-5.40) 03/13/25 11:52 Hgb 14.7 g/dl (12.0-16.0) 03/13/25 11:52 Hct 44.1 % (37.0-47.0) 03/13/25 11:52 MCV 88.7 fL (80.0-100.0) 03/13/25 11:52 MCH 29.6 pg (25.0-34.0) 03/13/25 11:52 MCHC 33.3 g/dL (32.0-36.0) 03/13/25 11:52 RDW Std Deviation 44.1 fL (36.4-46.3) 03/13/25 11:52 RDW Coeff of Michelle 13.7 % (11.5-14.5) 03/13/25 11:52 Plt Count 250 K/uL (130-400) 03/13/25 11:52 MPV 9.9 fL (9.4-12.4) 03/13/25 11:52 Immature Gran % (Auto) 0.8 % 03/13/25 11:52 Neut % (Auto) 69.1 % 03/13/25 11:52 Lymph % (Auto) 18.7 % 03/13/25 11:52 [place] % (Auto) 8.1 % 03/13/25 11:52 Eos % (Auto) 2.6 % 03/13/25 11:52 Baso % (Auto) 0.7 % 03/13/25 11:52 Neut # (Auto) 6.14 K/uL (1.40-6.50) 03/13/25 11:52 Lymph # (Auto) 1.66 K/uL (1.20-3.40) 03/13/25 11:52 [place] # (Auto) 0.72 K/uL (0.11-0.59) H 03/13/25 11:52 Eos # (Auto) 0.23 K/uL (0.00-0.50) 03/13/25 11:52 Baso # (Auto) 0.06 K/uL (0.00-0.20) 03/13/25 11:52 Immature Gran # (Auto) 0.07 K/uL (0.01-0.20) 03/13/25 11:52 PT 10.5 Seconds (9.0-12.0) 03/13/25 11:52 INR 1.0 (0.9-1.1) 03/13/25 11:52 APTT 35 Seconds (21-31) H 03/13/25 11:52 PTT Ratio 1.3 03/13/25 11:52 Sodium 138 mmol/L (136-145) 03/13/25 11:52 Potassium 4.2 mmol/L (3.5-5.1) 03/13/25 11:52 Chloride 100 mmol/L (98-107) 03/13/25 11:52 Carbon Dioxide 29 mmol/L (21-32) 03/13/25 11:52 Anion Gap 9 (3-11) 03/13/25 11:52 BUN 18 mg/dl (6-23) 03/13/25 11:52 Creatinine 0.72 mg/dl (0.6-1.2) 03/13/25 11:52 Est Cr Clr Drug Dosing 113.8 ml/min 03/13/25 11:52 eGFR 92.73 03/13/25 11:52 BUN/Creatinine Ratio 25.0 (10-20) H 03/13/25 11:52 Glucose 203 mg/dl (70-99(Fasting)) H 03/13/25 11:52 Calcium 9.7 mg/dl (8.6-10.3) 03/13/25 11:52 Total Bilirubin 0.3 mg/dl (0.2-1.0) 03/13/25 11:52 AST 12 U/L (13-39) L 03/13/25 11:52 ALT 17 U/L (7-52) 03/13/25 11:52 Alkaline Phosphatase 94 U/L (34-104) 03/13/25 11:52 Troponin I High Sens 4.0 pg/ml (0-14) 03/13/25 11:52 Total Protein 8.1 gm/dl (6.0-8.3) 03/13/25 11:52 Albumin 3.9 gm/dl (3.4-5.0) 03/13/25 11:52 Globulin 4.2 gm/dl (2.5-4.0) H 03/13/25 11:52 Albumin/Globulin Ratio 0.9 (0.9-2) 03/13/25 11:52 Lipase 26 U/L (11-82) 03/13/25 11:52 TSH 1.164 uIu/ml (0.300-4.500) 03/13/25 11:52 Urine Color Yellow 03/13/25 11:52 Urine Appearance Clear (Clear) 03/13/25 11:52 Urine pH 6.5 (4.5-7.5) 03/13/25 11:52 Ur Specific [place] 1.013 (1.000-1.030) 03/13/25 11:52 Urine Protein Negative (Negative) 03/13/25 11:52 Urine Glucose (UA) Negative (Negative) 03/13/25 11:52 Urine Ketones Negative (Negative) 03/13/25 11:52 Urine Blood Negative (Negative) 03/13/25 11:52 Urine Nitrite Negative (Negative) 03/13/25 11:52 Urine Bilirubin Negative (Negative) 03/13/25 11:52 Urine Urobilinogen Negative (Negative) 03/13/25 11:52 Ur Leukocyte Esterase Negative (Negative) 03/13/25 11:52 Urine Comment 03/13/25 11:52 Impressions Chest X-Ray 03/13/25 12:00 Clinical History: Chest pain Technique: A frontal view of the chest was obtained Findings: There are no confluent pulmonary infiltrates. The heart size is within normal limits. No pleural effusion or pneumothorax is seen. There is no definite pulmonary nodule. No fracture is noted. No foreign body is seen Impression: No active disease Electronically signed by Kota Ridley 03-13-2025 12:32 PM Chest CTA 03/13/25 12:55 Exam: CT angiogram chest with the pulmonary embolus protocol. Reason for exam: Chest pain with tachycardia. Previous studies: Chest radiograph 03/13/2025. FINDINGS: There is good opacification of the pulmonary artery. At this time no persistent filling defect to indicate pulmonary embolus is identified on either side. Aorta shows no visible aneurysm or dissection at this time. Mild coronary artery calcifications are present. Lungs again show minimal scattered linear areas of atelectasis. Otherwise no active pulmonary nodule, infiltrate or mass lesion is seen at this time. No pleural effusion or pneumothorax is noted. IMPRESSION: 1. Negative for pulmonary embolus. 2. A few scattered areas of linear atelectasis. Otherwise clear lungs. 3. Mild coronary artery calcification. 4. Otherwise negative for active cardiopulmonary disease. Electronically signed by Robby Murdock 03-13-2025 2:17 PM Supervising Physician Co-Signing Physician Notes Attending Addendum: Case reviewed with the advanced practitioner. I have personally performed a history and physical examination on the patient. I have reviewed the advanced practitioner's documentation on the date of service referenced in note, and I agree with, and take responsibility for the plan of care. please refer to her notes for full details patient seen and examined, records reviewed by myself as well on exam, patient seen resting in bed, comfortable, somewhat anxious states she feels ok overall has occasional palpitations while at the ED chest pain resolved no chest pain, dyspnea, dizziness no other symptoms VS noted and reviewed oriented x 3 , not in distress, speaks in sentences with no effort nor accessory muscle use normal rate, regular rhythm, no murmurs clear breath sounds bilaterally non distended, soft, nontender no bipedal edema, erythema, warmth no neuro deficits all labs, imaging noted and reviewed ASSESSMENT AND PLAN> PALPITATIONS WITH HYPERTENSIVE URGENCY HR 120s upon arrival to ED with BP syst 180s received Labetalol IV EKG sinus rhythms with PVCs, HR 70s troponin negative TSH normal start Carvedilol 6.25mg BID d/c Amlodipine continue Losartan check echo Cardiology consulted other diagnoses and plan of care as per advanced practitioner's notes I spent a total of 45 minutes coordinating, documenting, and providing care for this patient, excluding time spent in the performance of separately billed services or time spent by another provider/QHP. Devan Merchant MD
[2025-03-13] MEDS ORDERED: ACETAMINOPHEN 325 MG TAB PO PRN (16:53)
[2025-03-13] MEDS: BUTALBITAL/ACETAMIN/CAFFEINE TAB PO STA (18:32)
[2025-03-13] MEDS ORDERED: ENOXAPARIN INJ 40 MG/0.4 ML SYR SQ SCH (21:00)
[2025-03-14] MEDS: ACETAMINOPHEN 1,000 MG/100 ML VIAL IV STA (00:02)
[2025-03-14 06:14] LABS: Hematocrit (blood only) 41.6 % (37.0-47.0); Hemoglobin 13.6 g/dl (12.0-16.0); Immature Granulocytes # (auto) 0.03 K/uL (0.01-0.20); Immature Granulocytes % (auto) 0.3 %; Mean Corpuscular Hemoglobin 29.1 pg (25.0-34.0); Mean Corpuscular Volume 88.9 fL (80.0-100.0); Platelet Count 236 K/uL (130-400); RDW Standard Deviation 44.5 fL (36.4-46.3); Red Blood Count 4.68 M/uL (4.20-5.40); White Blood Count 8.85 K/ul (4.8-10.8)
[2025-03-14 06:30] LABS: Alanine Aminotransferase 14.0 U/L (7-52); Albumin Globulin Ratio 1.1 (0.9-2); Albumin Level 3.7 gm/dl (3.4-5.0); Alkaline Phosphatase 69.0 U/L (34-104); Anion Gap 7.0 (3-11); Bilirubin,Total 0.3 mg/dl (0.2-1.0); Blood Urea Nitrogen 19.0 mg/dl (6-23); Calcium 9.0 mg/dl (8.6-10.3); Carbon Dioxide 29.0 mmol/L (21-32); Chloride 102.0 mmol/L (98-107); Creatinine Clr Calc Pharmacy 115.8 ml/min; Globulin 3.4 gm/dl (2.5-4.0); Glucose 168.0 mg/dl (70-99(Fasting)); Magnesium 1.9 mg/dl (1.7-2.4); Potassium 3.9 mmol/L (3.5-5.1); Sodium 138.0 mmol/L (136-145); Total Protein 7.1 gm/dl (6.0-8.3)
[2025-03-14 07:19] VITALS: TEMP 97.9
[2025-03-14] MEDS: CHOLECALCIFEROL 25 MCG (1000 UNITS) TAB PO SCH (08:21)
[2025-03-14] MEDS: LOSARTAN POTASSIUM 50 MG TAB PO SCH (08:23)
[2025-03-14] MEDS ORDERED: LOSARTAN POTASSIUM 50 MG TAB PO SCH (09:00)
--- NOTE | 2025-03-14 10:57 | Cardiology Consultation ---
<Statement entered by Nikky Kim DO - 03/14/25 13:18> I have reviewed the advanced practitioner's documentation and agree with the plan of care. I accept the responsibility for the associated risk. pt seen in cardiology consultation due to hypertensive urgency and tachycardia; with underlying BELGICA on CPAP and HTN on medications EMS reported possible AF BP better today and she is feeling better recommend adding coreg 6.25mg BID in addition to her other anti-hypertensive agents echo today looked good no need for further in patient testing; i will arrange for pt to have a zio patch monitor and then follow up with me as an outpatient afterwards on 04/27/25 Date of Consultation March 14, 2025 Assessment & Plan (1) Hypertensive urgency: (2) Heart palpitations: (3) BELGICA treated with BiPAP: (4) Diabetes: Plan - Patient noted to be hypertensive on presentation which has improved but remains above goal - Presenting ECG also indicated sinus tachycardia which is improved overnight repeat ECG indicates normal sinus rhythm - Continue losartan - Would keep carvedilol to 6.25 mg twice daily - Given the presenting hypertensive urgency I would also continue her amlodipine 5 mg daily which she came in on - OK for discharge but needs a Zio as an outpatient which we can assist with coordinating as an outpatient Case discussed with Dr. Kim. Please see attestation for additional recommendations. SRINI Gonzalez Department of Cardiology, [facility] This chart was completed in part utilizing Speech Voice Recognition Software. Grammatical errors, random word insertions, pronoun errors, and incomplete sentences are an occasional consequence of this system due to software limitations, ambient noise, and hardware issues. Any formal questions or concerns about the content, text, or information contained within the body of this dictation should be directly addressed to the provider for clarification. History of Present Illness Reason for Consultation: HTN Urgency Requesting Physician: Hospitalist Attending Physician: Santos Leahy DO History of Present Illness 64-year-old female seen in consultation today in regard to hypertensive urgency and palpitations. Patient presented to the emergency room yesterday reporting palpitations that had gone on for a few hours prior to presentation. She did have an episode of mild chest pressure. On presentation she was noted to be significantly hypertensive in the 180s. Past medical history of DM II, asthma, migraines, GERD, von Willebrand disease, HTN, BELGICA treated with BiPAP, autoimmune hepatitis. Allergies Allergy/AdvReac Type Severity Reaction Status Date / Time chlorhexidine Allergy Intermediate severe Verified 03/01/19 17:04 itching garlic Allergy Intermediate SKIN Verified 03/13/25 14:44 BLISTERING/PEELING hydrocodone Allergy Intermediate HIVES Verified 03/01/19 17:04 aspirin Allergy Unknown ` Verified 03/01/19 17:04 hydromorphone [From Dilaudid] Allergy Unknown Unknown Verified 03/01/19 17:04 Penicillins Allergy Unknown ` Verified 03/01/19 17:04 mold Allergy Unknown Verified 03/01/19 17:04 morphine AdvReac Mild N/V Verified 03/01/19 17:04 ferumoxytol [From Feraheme] AdvReac Joint Pain Verified 03/13/25 14:45 Home Medications Medication Instructions Recorded Confirmed Type albuterol sulfate 2.5 mg/3 mL 2.5 mg inhalation Q4H PRN SOB 03/13/25 03/13/25 History (0.083 %) solution for nebulization albuterol sulfate 90 mcg/actuation 1 inh inhalation QID PRN SOB 03/13/25 03/13/25 History aerosol inhaler amlodipine 2.5 mg tablet 2.5 mg PO DAILY 03/13/25 03/13/25 History celecoxib 100 mg capsule 100 mg PO BID PRN Unknown 03/13/25 03/13/25 History cholecalciferol (vitamin D3) 50 50 mcg PO DAILY 03/13/25 03/13/25 History mcg (2,000 unit) tablet (Vitamin D3) furosemide 40 mg tablet 40 mg PO DAILY PRN RETENTION 03/13/25 03/13/25 History gemfibrozil 600 mg tablet 600 mg PO BID 03/13/25 03/13/25 History glimepiride 1 mg tablet 1 mg PO DAILY 03/13/25 03/13/25 History lansoprazole 30 mg capsule,delayed 30 mg PO DAILY 03/13/25 03/13/25 History release ursodiol 300 mg capsule 300 mg PO BID 03/13/25 03/13/25 History carvedilol 6.25 mg tablet (Coreg) 6.25 mg PO BID #60 tabs 03/14/25 Rx losartan 100 mg tablet 100 mg PO DAILY #30 tabs 03/14/25 Rx Patient History Medical History (Updated 03/14/25 @ 11:10 by Santos Leahy DO) Asthma Autoimmune hepatitis Family History Other Diabetes Heart disease Hypertension Social History Smoking Status: Former smoker Tobacco Type: Cigarettes Second Hand Exposure: No; Do You Dip or Chew Tobacco: No; Tobacco Cessation Education Requested by Patient: No Hx Alcohol Use: Yes Hx Substance Use: No Preferred Language: Belarusian Communication Ability: Effective Financial Advisor Trainee Required: No Beliefs That Will Affect Care: None Current Living Situation: Spouse and Family Other Information That Helps Us Care for You: No Feels Safe at Home: Yes Safety Concerns: Feels Safe At This Time Assistive Devices: BiPap and Glasses Review of Systems Review of Systems: All systems reviewed & are unremarkable except as noted in HPI & below Physical Exam Constitutional: WD/WN, vitals as above well developed and well nourished; no acute distress Eyes: PERRL, conjunctivae normal, anicteric sclerae Respiratory: normal respiratory effort, lungs clear to auscultation Cardiovascular: RRR, no murmur, no edema Gastrointestinal (Abdomen): normal bowel sounds, soft, nontender, no hepatosplenomegaly Musculoskeletal: no cyanosis or clubbing, extremities motor strength 5/5 Skin: no rashes, warm and dry Psychiatric: A+Ox3, euthymic affect Results & Data Vital Signs (Past 12 Hours) Vital Signs Temp Pulse Pulse Resp BP Pulse Ox O2 Del Method 03/14/25 09:00 67 03/14/25 07:18 36.6 C 68 21 164/83 H 96 Room Air 03/14/25 04:17 74 17 99 03/14/25 03:08 36.3 C L 63 18 147/79 H 97 CPAP 03/13/25 23:49 78 20 99 03/13/25 23:00 78 03/13/25 22:56 36.5 C 82 20 158/82 H 94 Room Air O2 Flow Rate 03/14/25 09:00 03/14/25 07:18 03/14/25 04:17 2 03/14/25 03:08 03/13/25 23:49 2 03/13/25 23:00 03/13/25 22:56 Laboratory Results Cardiac Enzymes 03/13/25 03/14/25 Range/Units 11:52 05:33 AST 12 L 10 L (13-39) U/L Troponin I High Sens 4.0 (0-14) pg/ml Coagulation 03/13/25 Range/Units 11:52 PT 10.5 (9.0-12.0) Seconds APTT 35 H (21-31) Seconds CBC 03/13/25 03/14/25 Range/Units 11:52 05:33 WBC 8.88 8.85 (4.8-10.8) K/ul RBC 4.97 4.68 (4.20-5.40) M/uL Hgb 14.7 13.6 (12.0-16.0) g/dl Hct 44.1 41.6 (37.0-47.0) % Plt Count 250 236 (130-400) K/uL Neut # (Auto) 6.14 5.89 (1.40-6.50) K/uL Lymph # (Auto) 1.66 1.93 (1.20-3.40) K/uL [place] # (Auto) 0.72 H 0.68 H (0.11-0.59) K/uL Eos # (Auto) 0.23 0.27 (0.00-0.50) K/uL Baso # (Auto) 0.06 0.05 (0.00-0.20) K/uL Comprehensive Metabolic Panel 03/13/25 03/14/25 Range/Units 11:52 05:33 Sodium 138 138 (136-145) mmol/L Potassium 4.2 3.9 (3.5-5.1) mmol/L Chloride 100 102 (98-107) mmol/L Carbon Dioxide 29 29 (21-32) mmol/L BUN 18 19 (6-23) mg/dl Creatinine 0.72 0.70 (0.6-1.2) mg/dl Glucose 203 H 168 H (70-99(Fasting)) mg/dl Calcium 9.7 9.0 (8.6-10.3) mg/dl AST 12 L 10 L (13-39) U/L ALT 17 14 (7-52) U/L Alkaline Phosphatase 94 69 (34-104) U/L Total Protein 8.1 7.1 (6.0-8.3) gm/dl Albumin 3.9 3.7 (3.4-5.0) gm/dl Intake and Output 03/13/25 03/14/25 03/14/25 22:59 06:59 14:59 Intake Total 500 / 1000 500 / 1000 Balance 500 / 1000 500 / 1000 Intake: IV 500 / 600 100 / 600 Acetaminophen 1,000 mg In 100 100 / 100 ml @ 400 mls/hr IV NOW STA Rx#: [id number] Sodium Chloride 0.9% 500 ml @ 500 / 500 999 mls/hr IV .Q31M ONE Rx#: [id number] Oral 400 / 400 Other: # Unmeasured Voids 1 Weight 140.069 kg 140 kg Weight Measurement Method Built in Bedscale Built in Bedscale Diagnostic Findings Laboratory Results WBC 8.85 K/ul (4.8-10.8) 03/14/25 05:33 RBC 4.68 M/uL (4.20-5.40) 03/14/25 05:33 Hgb 13.6 g/dl (12.0-16.0) 03/14/25 05:33 Hct 41.6 % (37.0-47.0) 03/14/25 05:33 MCV 88.9 fL (80.0-100.0) 03/14/25 05:33 MCH 29.1 pg (25.0-34.0) 03/14/25 05:33 MCHC 32.7 g/dL (32.0-36.0) 03/14/25 05:33 RDW Std Deviation 44.5 fL (36.4-46.3) 03/14/25 05:33 RDW Coeff of Michelle 13.7 % (11.5-14.5) 03/14/25 05:33 Plt Count 236 K/uL (130-400) 03/14/25 05:33 MPV 9.7 fL (9.4-12.4) 03/14/25 05:33 Immature Gran % (Auto) 0.3 % 03/14/25 05:33 Neut % (Auto) 66.5 % 03/14/25 05:33 Lymph % (Auto) 21.8 % 03/14/25 05:33 [place] % (Auto) 7.7 % 03/14/25 05:33 Eos % (Auto) 3.1 % 03/14/25 05:33 Baso % (Auto) 0.6 % 03/14/25 05:33 Neut # (Auto) 5.89 K/uL (1.40-6.50) 03/14/25 05:33 Lymph # (Auto) 1.93 K/uL (1.20-3.40) 03/14/25 05:33 [place] # (Auto) 0.68 K/uL (0.11-0.59) H 03/14/25 05:33 Eos # (Auto) 0.27 K/uL (0.00-0.50) 03/14/25 05:33 Baso # (Auto) 0.05 K/uL (0.00-0.20) 03/14/25 05:33 Immature Gran # (Auto) 0.03 K/uL (0.01-0.20) 03/14/25 05:33 PT 10.5 Seconds (9.0-12.0) 03/13/25 11:52 INR 1.0 (0.9-1.1) 03/13/25 11:52 APTT 35 Seconds (21-31) H 03/13/25 11:52 PTT Ratio 1.3 03/13/25 11:52 Sodium 138 mmol/L (136-145) 03/14/25 05:33 Potassium 3.9 mmol/L (3.5-5.1) 03/14/25 05:33 Chloride 102 mmol/L (98-107) 03/14/25 05:33 Carbon Dioxide 29 mmol/L (21-32) 03/14/25 05:33 Anion Gap 7 (3-11) 03/14/25 05:33 BUN 19 mg/dl (6-23) 03/14/25 05:33 Creatinine 0.70 mg/dl (0.6-1.2) 03/14/25 05:33 Est Cr Clr Drug Dosing 115.8 ml/min 03/14/25 05:33 eGFR 95.92 03/14/25 05:33 BUN/Creatinine Ratio 27.1 (10-20) H 03/14/25 05:33 Glucose 168 mg/dl (70-99(Fasting)) H 03/14/25 05:33 POC Glucose 129 mg/dl (70-99) H 03/13/25 16:53 Calcium 9.0 mg/dl (8.6-10.3) 03/14/25 05:33 Magnesium 1.9 mg/dl (1.7-2.4) 03/14/25 05:33 Total Bilirubin 0.3 mg/dl (0.2-1.0) 03/14/25 05:33 AST 10 U/L (13-39) L 03/14/25 05:33 ALT 14 U/L (7-52) 03/14/25 05:33 Alkaline Phosphatase 69 U/L (34-104) 03/14/25 05:33 Troponin I High Sens 4.0 pg/ml (0-14) 03/13/25 11:52 Total Protein 7.1 gm/dl (6.0-8.3) 03/14/25 05:33 Albumin 3.7 gm/dl (3.4-5.0) 03/14/25 05:33 Globulin 3.4 gm/dl (2.5-4.0) 03/14/25 05:33 Albumin/Globulin Ratio 1.1 (0.9-2) 03/14/25 05:33 Lipase 26 U/L (11-82) 03/13/25 11:52 TSH 1.164 uIu/ml (0.300-4.500) 03/13/25 11:52 Urine Color Yellow 03/13/25 11:52 Urine Appearance Clear (Clear) 03/13/25 11:52 Urine pH 6.5 (4.5-7.5) 03/13/25 11:52 Ur Specific [place] 1.013 (1.000-1.030) 03/13/25 11:52 Urine Protein Negative (Negative) 03/13/25 11:52 Urine Glucose (UA) Negative (Negative) 03/13/25 11:52 Urine Ketones Negative (Negative) 03/13/25 11:52 Urine Blood Negative (Negative) 03/13/25 11:52 Urine Nitrite Negative (Negative) 03/13/25 11:52 Urine Bilirubin Negative (Negative) 03/13/25 11:52 Urine Urobilinogen Negative (Negative) 03/13/25 11:52 Ur Leukocyte Esterase Negative (Negative) 03/13/25 11:52 Urine Comment 03/13/25 11:52 Impressions Chest X-Ray 03/13/25 12:00 Clinical History: Chest pain Technique: A frontal view of the chest was obtained Findings: There are no confluent pulmonary infiltrates. The heart size is within normal limits. No pleural effusion or pneumothorax is seen. There is no definite pulmonary nodule. No fracture is noted. No foreign body is seen Impression: No active disease Electronically signed by Kota Ridley 03-13-2025 12:32 PM Chest CTA 03/13/25 12:55 Exam: CT angiogram chest with the pulmonary embolus protocol. Reason for exam: Chest pain with tachycardia. Previous studies: Chest radiograph 03/13/2025. FINDINGS: There is good opacification of the pulmonary artery. At this time no persistent filling defect to indicate pulmonary embolus is identified on either side. Aorta shows no visible aneurysm or dissection at this time. Mild coronary artery calcifications are present. Lungs again show minimal scattered linear areas of atelectasis. Otherwise no active pulmonary nodule, infiltrate or mass lesion is seen at this time. No pleural effusion or pneumothorax is noted. IMPRESSION: 1. Negative for pulmonary embolus. 2. A few scattered areas of linear atelectasis. Otherwise clear lungs. 3. Mild coronary artery calcification. 4. Otherwise negative for active cardiopulmonary disease. Electronically signed by Robby Murdock 03-13-2025 2:17 PM Medications Administered Current Inpatient Medications Acetaminophen (Acetaminophen 325 Mg Tab) 650 mg PO Q4H PRN PRN Reason: Pain or Fever Stop: 04/12/25 16:52 Albuterol (Albuterol 0.083% Nebu Soln 3 Ml Vial) 2.5 mg INH Q4H PRN; Protocol PRN Reason: Shortness Of Breath Stop: 04/12/25 14:57 Carvedilol (Carvedilol 6.25 Mg Tab) 6.25 mg PO BIDM ALYSSA Stop: 04/12/25 16:59 Last Admin: 03/14/25 08:21 Dose: 6.25 mg Gemfibrozil (Gemfibrozil 600 Mg Tab) 600 mg PO BID ALYSSA Stop: 04/12/25 20:59 Last Admin: 03/14/25 08:20 Dose: 600 mg Losartan Potassium (Losartan Potassium 50 Mg Tab) 100 mg PO QAM ALYSSA Stop: 04/13/25 08:59 Last Admin: 03/14/25 08:23 Dose: 100 mg Oxycodone HCl (Oxycodone Hcl Ir 5 Mg Tab (Immediate Release)) 5 mg PO Q4H PRN PRN Reason: Pain Stop: 03/27/25 23:49 Pantoprazole Sodium (Pantoprazole 40 Mg Tab) 40 mg PO DAILY ALYSSA Stop: 04/13/25 08:59 Last Admin: 03/14/25 08:23 Dose: 40 mg Ursodiol (Ursodiol 300 Mg Cap) 300 mg PO BID ALYSSA Stop: 04/12/25 20:59 Last Admin: 03/14/25 08:21 Dose: 300 mg Vitamin D (Cholecalciferol 25 Mcg (1000 Units) Tab) 50 mcg PO DAILY ALYSSA Stop: 04/13/25 08:59 Last Admin: 03/14/25 08:21 Dose: 50 mcg PG Care Time/CCT Total # of Minutes Spent Total Time Spent with Patient: Total time spent is greater than 50% in coordination of care (as documented) at patient's floor/unit and/or counseling patient: Coding Level of Care Code 92688 IN/OBS CONSULT LVL 5,80M Diagnoses Hypertensive urgency I16.0 Heart palpitations R00.2 BELG[place] treated with BiPAP G47.33 Diabetes E11.9
--- NOTE | 2025-03-14 11:14 | Discharge Summary ---
Discharge Summary Date of Service March 14, 2025 Principal Dx & Hospital Course #1 = Principal Diagnosis (1) Hypertension, uncontrolled: (2) Symptomatic PVCs: (3) Diabetes mellitus type 2, noninsulin dependent: (4) Microcytic anemia: (5) Von Willebrand disease: (6) [place] treated with BiPAP: (7) Autoimmune hepatitis: Plan Patient 64-year-old female presenting to the emergency room with complaints of some palpitations/racing heart and some mild chest pressure. In the emergency room she was quite hypertensive and tachycardic with PVCs. Patient was mated to hospital. She started on carvedilol. Losartan was added as well for better blood pressure control. By the following morning her weights were very well- controlled with a heart rate in the 60s. She was having no further symptoms of palpitation and no chest pressure. Troponin was negative and no evidence of acute coronary syndrome. Cardiology consultation was obtained they recommended he continue to trait carvedilol as tolerated. As of today her rates as mention were in mid 60s, be hesitant to increase her to 12-1/2 mg immediately. This could potentially be done as an outpatient. Will continue on the 6.25 mg since it has been quite effective. Also continue with the 2.5 mg of amlodipine that she had been on outpatient since we had the addition of the Coreg and increased dose of her losartan for better blood pressure control. Echocardiogram was pe rformed. Formal report is pending. Otherwise she was tolerating diet. She is feeling well. She was eager to get home and understands her need for ongoing outpatient follow-up to monitor her blood pressure and make sure that she continues to have control of it. Of note telemetry was reviewed. There is no significant arrhythmias on telemetry monitoring. Notes For Next Care Provider May need further up titration of her Coreg for blood pressure and tachycardia control Medication Changes From Visit Coreg instituted Losartan increased to 100 mg Admission HPI Per Admitting Provider The patient is a 64-year-old female with a past medical history of diabetes, asthma, migraines, GERD, von Willebrand disease, HTN, [place] treated with BiPAP, autoimmune hepatitis who presents to the ED on 03/13/25 with complaints of palp itations that started this a.m. The patient reports having breakfast as normal and crocheting. She reports feeling like her neck was throbbing due to her heart pounding. States she also reported some mild chest pressure. Denies any shortness of breath associated with this. Denies any recent illness. Denies any caffeine intake. Denies significant anxiety. Denies any nausea/vomiting/diarrhea recently. Denies any prior episodes like this. Reported feeling shaky so she called 911. She also reports a family history of her mother and her aunt having atrial fibrillation and was concerned about this. She reports when EMS arrived, they believed that she was in atrial fibrillation. On arrival to the ED, SBP's were in the 180s, 170s. Patient reports that her blood pressure is usually pretty well-controlled. Her labs are fairly unremarkable, glucose was elevated at 203, TSH within normal limits, urinalysis negative EKG showed sinus rhythm with PVCs; HR in the 90s and low 100s Chest x-ray negative Patient chest CTA was negative for PE, showed a few areas of linear atelectasis and mild coronary artery calcification The patient will be admitted for further management and workup for palpitations Admission Exam Per Admitting Provider See H&P Discharge Exam constitutional: Alert HEENT: Mucous membranes moist. Lungs: Clear to auscultation, decreased, no wheezes rales or rhonchi CV: S1-S2, regular Abdomen: Soft, nontender, nondistended Extremities: No significant edema Neuro: No focal deficits Psych: Cooperative, normal mood Updated Medication List Medication Instructions Recorded Confirmed Type albuterol sulfate 2.5 mg/3 mL 2.5 mg inhalation Q4H PRN SOB 03/13/25 03/13/25 History (0.083 %) solution for nebulization albuterol sulfate 90 mcg/actuation 1 inh inhalation QID PRN SOB 03/13/25 03/13/25 History aerosol inhaler amlodipine 2.5 mg tablet 2.5 mg PO DAILY 03/13/25 03/13/25 History celecoxib 100 mg capsule 100 mg PO BID PRN Unknown 03/13/25 03/13/25 History cholecalciferol (vitamin D3) 50 50 mcg PO DAILY 03/13/25 03/13/25 History mcg (2,000 unit) tablet (Vitamin D3) furosemide 40 mg tablet 40 mg PO DAILY PRN RETENTION 03/13/25 03/13/25 History gemfibrozil 600 mg tablet 600 mg PO BID 03/13/25 03/13/25 History glimepiride 1 mg tablet 1 mg PO DAILY 03/13/25 03/13/25 History lansoprazole 30 mg capsule,delayed 30 mg PO DAILY 03/13/25 03/13/25 History release ursodiol 300 mg capsule 300 mg PO BID 03/13/25 03/13/25 History carvedilol 6.25 mg tablet (Coreg) 6.25 mg PO BID #60 tabs 03/14/25 Rx losartan 100 mg tablet 100 mg PO DAILY #30 tabs 03/14/25 Rx Hospital Stay Data Consultations 03/13/25 14:46 ED Decision to Admit Stat 03/13/25 16:53 Consult Cardiology Routine Diagnostic Imagining Performed 03/13/25 12:55 CT angio chest PE protocol Stat Reviewed imaging, laboratory and diagnostic studies. Pertinent findings as below. CBC within normal ranges Electrolytes within normal range Creatinine 0.70 Glucoses fair control TSH 1.16 Urinalysis unremarkable Pending Results Patient Have Any Pending Studies at Discharge: Yes Discharge Instructions Given to Patient (Per Discharging Provider) Continue to monitor your blood pressure and make adjustments to your medications as per your PCP Total Time Total Time Spent Total Time Spent (In Minutes): 32
[2025-03-14 11:34] VITALS: BP 155/88; PULSE 75; RESP 18; O2SAT 95
--- NOTE | 2025-03-14 11:49 | Electrocardiogram Report ---
Test Reason : Blood Pressure : */* mmHG Vent. Rate : 122 BPM Atrial Rate : 122 BPM P-R Int : 192 ms QRS Dur : 78 ms QT Int : 336 ms P-R-T Axes : * -25 50 degrees QTcB Int : 478 ms Sinus tachycardia with Premature ventricular complexes or Fusion complexes Cannot rule out Anterior infarct , age undetermined Abnormal ECG When compared with ECG of 28-Feb-2018 07:21, Fusion complexes are now Present Premature ventricular complexes are now Present Vent. rate has increased by 50 bpm Minimal criteria for Anterior infarct are now Present Confirmed by Rigo Mason ([id number]) on 03/14/2025 11:49:10 AM Referred By: REFERRED SELF Confirmed By: Rigo Mason
--- NOTE | 2025-03-14 12:03 | Electrocardiogram Report ---
Test Reason : Blood Pressure : */* mmHG Vent. Rate : 70 BPM Atrial Rate : 70 BPM P-R Int : 212 ms QRS Dur : 96 ms QT Int : 430 ms P-R-T Axes : 42 -14 47 degrees QTcB Int : 464 ms Sinus rhythm with 1st degree A-V block Nonspecific T wave abnormality Abnormal ECG When compared with ECG of 13-Mar-2025 15:25, (unconfirmed) Fusion complexes are no longer Present Premature ventricular complexes are no longer Present Confirmed by Rigo Mason ([id number]) on 03/14/2025 12:02:46 PM Referred By: REFERRED SELF Confirmed By: Rigo Mason
--- NOTE | 2025-03-14 12:29 | XCELERA ---
[id number]
[2025-03-14] MEDS: LOPERAMIDE HCL 2 MG CAP PO STA (13:34)
--- NOTE | 2025-03-16 09:34 | Electrocardiogram Report ---
Test Reason : Blood Pressure : */* mmHG Vent. Rate : 99 BPM Atrial Rate : 99 BPM P-R Int : 188 ms QRS Dur : 80 ms QT Int : 374 ms P-R-T Axes : 35 -25 17 degrees QTcB Int : 479 ms Sinus rhythm with sinus arrhythmia with Premature ventricular complexes Otherwise normal ECG When compared with ECG of 13-Mar-2025 11:50, Minimal criteria for Anterior infarct are no longer Present Confirmed by Rigo Mason ([id number]) on 03/16/2025 9:33:46 AM Referred By: REFERRED SELF Confirmed By: Rigo Mason
== END 2025-03-14 13:34 | disposition home or self-care (01) | DRG 305 ==
LOC: ED 11:45 → SUATTDRO 14:56 → 4W 14:56